=== PATIENT | male | born 1970 | race Caucasian/White ===

== ENCOUNTER 2016-10-27 12:28 | Emergency (ER) | payer MEDICAID, OTHER ==
[~2016-10-27] VITALS: Ht 167.6 cm; Wt 65.4 kg
[2016-10-27 12:48] VITALS: Ht 167.6 cm; Wt 65.4 kg
[2016-10-27] MEDS ORDERED: IBUPROFEN 600 MG TAB PO ONE (15:30)
--- NOTE | 2016-10-27 15:53 | RADRPT ---
PROCEDURE: US Lower extremity Venous. CLINICAL INDICATION: Pain and swelling TECHNIQUE: Multiple sonographic images of the right lower extremity deep venous system was obtaine d utilizing grayscale, color-flow, compressive sonography and doppler imaging with augmentation. Th e images were reviewed on a PACS workstation. COMPARISON: None. FINDINGS: There is normal compressibility and flow within the right common femoral, deep femoral, superficial femoral and popliteal veins. Normal respiratory variation and augmentation is seen. There is normal color flow and compressibility of right posterior tibial and peroneal veins IMPRESSION: No sonographic evidence for right lower extremity deep venous thrombosis. RPTAT: HH .Desmond Mitchell MD, MD Date Time Electronically viewed and signed by .Desmond Mitchell MD, on 10/27/2016 15:52 .W/
[2016-10-27 16:26] LABS: ADD SCAN DIFF NO
[2016-10-27 16:29] LABS: BASOPHIL # 0.1 10^3/ul (0.0-0.1); BASOPHILS % 1.6 % (0.0-2.0); EOSINOPHILS # 0.2 10^3/ul (0.0-0.5); EOSINOPHILS % 3.6 % (0.0-7.0); HEMATOCRIT 36.4 % (42.0-52.0); HEMOGLOBIN 12.6 g/dl (14.0-18.0); LYMPHOCYTES # 1.8 10^3/ul (0.8-2.9); MEAN CORPUSCULAR HEMOGLOBIN 31.4 pg (29.0-33.0); MEAN CORPUSCULAR HGB CONC 34.6 g/dl (32.0-37.0); MEAN CORPUSCULAR VOLUME 90.8 fl (82.0-101.0); MEAN PLATELET VOLUME 10.3 fl (7.4-10.4); MONOCYTE # 0.5 10^3/ul (0.3-0.9); MONOCYTES % 10.4 % (0.0-11.0); NEUTROPHIL # 2.4 10^3/ul (1.6-7.5); NEUTROPHILS % 48.2 % (39.0-77.0); PLATELET COUNT 130 10^3/UL (140-415); RED BLOOD COUNT 4.01 10^6/ul (4.70-6.10); RED CELL DISTRIBUTION WIDTH 13.7 % (11.5-14.5)
[2016-10-27 16:44] LABS: ALBUMIN 3.6 g/dl (3.3-4.9)
[2016-10-27 16:45] LABS: POTASSIUM 3.9 mmol/L (3.5-5.1)
[2016-10-27 16:47] LABS: ALBUMIN/GLOBULIN RATIO 1.02; CREATININE 0.64 mg/dl (0.61-1.24); TOTAL PROTEIN 7.1 g/dl (6.1-8.1)
[2016-10-27 16:48] LABS: CALCIUM 8.7 mg/dl (8.4-10.2)
[2016-10-27] MEDS ORDERED: ACET500C5 PO (17:46)
--- NOTE | 2016-10-27 17:49 | ERD ---
ER Documentation Chief Complaint Date/Time DATE: 10/27/16 TIME: 17:47 Chief Complaint Pt generalized weakness, L leg pain X 4 days. HPI This 38-year-old male complains of pain in his right leg for last 4 days. Denies any history of trauma. Denies any fevers, shortness of breath. He has some complaints of some generalized body aches as well. Denies measured fever, cough, shortness of breath, abdominal pain, urinary complaints per ROS All systems reviewed and are negative except as per history of present illness. Medications Home Meds Active Scripts Acetaminophen* (Tylophen*) 500 Mg Capsule, 1 CAP PO Q6H Y for PAIN AND OR ELEVATED TEMP, #20 CAP Prov:PAUL ORDOÑEZ MD 10/27/16 Allergies Allergies: Uncoded Allergies: NONE (Allergy, 06/14/11) PMhx/Soc Medical and Surgical Hx: pt denies Medical Hx, pt denies Surgical Hx Hx Alcohol Use: No Hx Substance Use: No Smoking Status: Never smoker Physical Exam Vitals Vital Signs Date Time Temp Pulse Resp B/P Pulse Ox O2 Delivery O2 Flow Rate FiO2 10/27/16 12:48 98.6 62 20 139/63 100 Physical Exam Const: [] Alert, [id number] per Head: Atraumatic Eyes: Normal Conjunctiva ENT: Normal External Ears, Nose and Mouth. Neck: Full range of motion..~ No meningismus. Resp: Clear to auscultation bilaterally Cardio: Regular rate and rhythm, no murmurs Abd: Soft, non tender, non distended. Normal bowel sounds Skin: No petechiae or rashes Back: No midline or flank tenderness Ext: No cyanosis, or edema. Mild tenderness in the right calf without appreciable swelling. There is no erythema or warmth. Neur: Awake and alert Psych: Normal Mood and Affect Result Diagram: 10/27/16 1613 10/27/16 1613 Results 24 hrs Laboratory Tests Test 10/27/16 16:13 Alanine Aminotransferase (ALT/SGPT) 43IU/L Albumin 3.6g/dl Albumin/Globulin Ratio 1.02 Alkaline Phosphatase 147IU/L Anion Gap 14 Aspartate Amino Transf (AST/SGOT) 58IU/L Basophils # 0.110^3/ul Basophils % 1.6% Blood Urea Nitrogen 14mg/dl Calcium Level 8.7mg/dl Carbon Dioxide Level 25mmol/L Chloride Level 107mmol/L Creatinine 0.64mg/dl Direct Bilirubin 0.00mg/dl Eosinophils # 0.210^3/ul Eosinophils % 3.6% Globulin 3.50g/dl Glucose Level 127mg/dl Hematocrit 36.4% Hemoglobin 12.6g/dl Indirect Bilirubin 1.0mg/dl Lymphocytes # 1.810^3/ul Lymphocytes % 36.0% Mean Corpuscular Hemoglobin 31.4pg Mean Corpuscular Hemoglobin Concent 34.6g/dl Mean Corpuscular Volume 90.8fl Mean Platelet Volume 10.3fl Monocytes # 0.510^3/ul Monocytes % 10.4% Neutrophils # 2.410^3/ul Neutrophils % 48.2% Nucleated Red Blood Cells # 0.010^3/ul Nucleated Red Blood Cells % 0.0/100WBC Platelet Count 93734^3/UL Potassium Level 3.9mmol/L Red Blood Count 4.0110^6/ul Red Cell Distribution Width 13.7% Sodium Level 142mmol/L Total Bilirubin 1.0mg/dl Total Protein 7.1g/dl White Blood Count 5.010^3/ul Current Medications Medications (Trade) Dose Ordered Sig/Shiela Route PRN Reason Start Time Stop Time Status Last Admin Dose Admin Ibuprofen (Motrin) 600 mg ONCE ONCE PO 10/27/16 15:30 10/27/16 15:31 DC 10/27/16 15:52 Procedures/MDM CBC shows a white blood cell 5. Slight decrease in hemoglobin and decreased platelets. CMP and lipase are normal. Other extremity Doppler shows no evidence of DVT. Patient was given ibuprofen for pain. Patient has right leg pain of uncertain etiology and myalgias without evidence of DVT, cellulitis, neurovascular compromise, bacterial infection.. Patient shows no signs or symptoms to suggest acute emergent illness requiring further intervention. He does appear to be in need of primary care. He will be discharged home with follow-up with a local [facility]. Should otherwise return for fever, cough, shortness breath, new or worsening symptoms. The patient was stable with no new complaints during the ER course. Clinically, there is no current evidence to suggest meningitis, sepsis, acute abdomen, pneumonia, acute coronary syndrome, pulmonary embolism, or any other emergent condition appearing to require further evaluation or hospitalization. The patient should certainly return for any new or worsening symptoms per the aftercare instructions. They should otherwise follow-up with her primary care doctor for reevaluation this week. Departure Diagnosis: Primary Impression: Leg pain Laterality: right Qualified Code: M79.604 - Pain of right lower extremity Additional Impression: Multiple complaints Condition: Stable Patient Instructions: Muscle Strain, Extremity, Symptoms With Uncertain Cause [facility] Usted se green hecho un examen mdico de control que le indica que no est en geo condicin que requiera tratamiento urgente en el Departamento de Emergencia. Un estudio ms profundo y el tratamiento de jorge condicin pueden esperar sin ningn riesgo hasta que usted sea atendida/o en el consultorio de jorge mdico o geo cl belen. Es responsabilidad suya arreglar geo debbie para el seguimiento del bashir. MANEJO DE CONDICIONES NO URGENTES EN EL FUTURO 1) Si usted tiene un mdico de atencin primaria: Usted debera llamar a jorge mdico de atencin primaria antes de venir al departamento de emergencia. Despus de las horas de consultorio, jorge doctor o jorge asociado/a est disponible por telfono. El mdico o enfermero de jett en el servicio telefnico puede asesorarle por flip medio para atender el problema, o bashir contrario se puede programar geo debbie. 2) Si usted no tiene un mdico de atencin primaria: Llame al mdico o clnica de referencia que aparece abajo desmond las horas de consultorio para hacer geo debbie para que le vean. CLINICAS: [facility] [phone] [facility] [phone] [facility] [phone] [facility] [phone] [facility] [phone] [id number] [facility] [phone] [address] Additional Instructions: Examines normal hoy. Cheque otro vez con jorge doctor primario en el proximo walker or regresa para mas o nueva simptomas. PAUL ORDOÑEZ MD Oct 27, 2016 17:49
[2016-10-27 17:57] VITALS: BP 128/62; PULSE 68; RESP 18; TEMP 97.9
== END 2016-10-27 17:59 | disposition home or self-care (01) ==
LOC: FTE 12:28
DX: M79.604 Pain in right leg (principal); R53.1 Weakness; M79.1 Myalgia
CPT/HCPCS: 80053; 85025; 93971; Z7502; Z7610

== ENCOUNTER 2016-11-15 12:44 | Inpatient (IN) | payer MEDICAID ==
[~2016-11-15] VITALS: Ht 170.2 cm; Wt 64.6 kg
[~2016-11-15 12:44] MED LIST: ACET500C5 PO
[2016-11-15] MEDS ORDERED: FAMOTIDINE 20 MG INJ IV STA (12:49)
[2016-11-15] MEDS ORDERED: ONDANSETRON 4 MG INJ IV STA (12:49)
[2016-11-15] MEDS ORDERED: SOD CHLORIDE 0.9% 1,000 ML IV STA (12:49)
[2016-11-15] MEDS ORDERED: morphine 4 MG/ML VIAL IV STA (12:49)
--- NOTE | 2016-11-15 12:53 | ERD ---
ER Documentation Chief Complaint Date/Time DATE: 11/15/16 TIME: 12:50 Chief Complaint HPI This is a 46-year-old male with no past medical history that presents to the emergency department brought in by EMS complaining of abdominal pain. He states the pain is present in the left lower quadrant. The pain has been persistent for the past 48 hours. He denies any hemoptysis hematemesis or melanotic stools. He denies any alcohol use. He denies any recent travel or prolonged immobilization. He has had no frequency urgency or dysuria. He has had a decrease in appetite since the onset of his abdominal pain. He states he has had no recent remote blunt or penetrating chest or abdominal wall trauma. He denies any diarrhea or constipation. He does state he is felt nauseous but as stated above he has not experienced any emesis. He has no chest pain or pressure that radiates to the neck arm back or jaw. He has never had any similar abdominal pain in the past. He denies any weight loss or night sweats. He denies a productive or nonproductive cough. ROS All systems reviewed and are negative except as per history of present illness. Medications Home Meds Discontinued Scripts Acetaminophen* (Tylophen*) 500 Mg Capsule, 1 CAP PO Q6H Y for PAIN AND OR ELEVATED TEMP, #20 CAP Prov:PAUL ORDOÑEZ MD 10/27/16 Allergies Allergies: Uncoded Allergies: NONE (Allergy, Unknown, 11/15/16) PMhx/Soc Hx Alcohol Use: No Hx Substance Use: No Physical Exam Vitals Vital Signs Date Time Temp Pulse Resp B/P Pulse Ox O2 Delivery O2 Flow Rate FiO2 11/15/16 15:46 66 18 121/64 99 Room Air 11/15/16 13:23 67 20 127/67 99 Room Air 11/15/16 12:50 97.9 64 18 100/57 98 Physical Exam Constitutional:Well-developed. Well-nourished. HEENT:Normocephalic. Atraumatic.Pupils were equal round reactive to light. Very dry mucous membranes.No tonsillar exudates. Neck: No nuchal rigidity. No lymphadenopathy. No posterior cervical spine tenderness or step-offs. Respiratory: Not using accessory muscles of respiration.Lungs were clear to auscultation bilaterally. No rhonchi. No rales. No wheezing. Cardiovascular: Regular rate regular rhythm.No murmurs. No rubs were appreciated.S1, S2 normal. Distal pulses are palpable 2+ bilaterally. GI: Abdomen was soft. Tenderness in the left lower quadrant. Distended with no fluid thrill or tense ascites. No pulsatile abdominal masses or bruits. No rebound. No guarding. Bowel sounds were present and normal. Muscle skeletal: Full range of motion of both the upper and lower extremities bilaterally.Normal muscle tone.No assymetrical calf tenderness or swelling. Skin: No petechia, no purpura. No lesions on the palms or the soles of the feet. No maculopapular rash. NEURO: Patient was alert, awake, orientated x3.No facial droop. Gait observed and normal with no ataxia.Speech had regular rate and rhythm. No focal neurological deficits. Result Diagram: 11/15/16 1345 11/15/16 1300 Results 24 hrs Laboratory Tests Test 11/15/16 13:00 11/15/16 13:45 Activated Partial Thromboplast Time 31.4Sec Alanine Aminotransferase (ALT/SGPT) 63IU/L Albumin 2.5g/dl Albumin/Globulin Ratio 0.89 Alkaline Phosphatase 137IU/L Amylase Level 57U/L Anion Gap 10 Aspartate Amino Transf (AST/SGOT) 103IU/L Basophils # 0.110^3/ul 0.010^3/ul Basophils % 3.0% 1.0% Blood Urea Nitrogen 13mg/dl Calcium Level 7.1mg/dl Carbon Dioxide Level 35mmol/L Chloride Level 98mmol/L Creatinine 0.51mg/dl Direct Bilirubin 0.00mg/dl Eosinophils # 0.210^3/ul 0.110^3/ul Eosinophils % 6.0% 4.0% Ethyl Alcohol Level < 10.0mg/dl Globulin 2.80g/dl Glucose Level 108mg/dl Hematocrit 20.0% 19.5% Hemoglobin 6.7g/dl 6.6g/dl Hypochromasia 2+ INR International Normalized Ratio 1.08 Indirect Bilirubin 0.8mg/dl Lipase 53U/L Lymphocytes # 0.710^3/ul 0.710^3/ul Lymphocytes % 24.0% 24.0% Mean Corpuscular Hemoglobin 29.5pg 29.9pg Mean Corpuscular Hemoglobin Concent 33.5g/dl 33.8g/dl Mean Corpuscular Volume 88.1fl 88.2fl Mean Platelet Volume 9.7fl 9.6fl Monocytes # 0.010^3/ul 0.110^3/ul Monocytes % 1.0% 5.0% Neutrophils # 1.910^3/ul 1.710^3/ul Neutrophils % 65.0% 59.0% Platelet Count 52903^3/UL 76392^3/UL Polychromasia Potassium Level 2.7mmol/L Promyelocytes # 0.0 Promyelocytes % 1.0% Prothrombin Time 14.0Sec Prothrombin Time Ratio 1.1 Red Blood Count 2.2710^6/ul 2.2110^6/ul Red Cell Distribution Width 13.8% 13.8% Sodium Level 140mmol/L Total Bilirubin 0.8mg/dl Total Protein 5.3g/dl Troponin I < 0.012ng/ml White Blood Count 2.910^3/ul 2.810^3/ul Band Neutrophils % 7.0% Nucleated Red Blood Cells % 2.0/100WBC Current Medications Medications (Trade) Dose Ordered Sig/Shiela Route PRN Reason Start Time Stop Time Status Last Admin Dose Admin Sodium Chloride (NS) 1,000 ml @ 1,000 mls/hr Q1H STAT IV 11/15/16 12:49 11/15/16 13:48 DC 11/15/16 13:42 Morphine Sulfate (morphine) 4 mg ONCE STAT IV 11/15/16 12:49 11/15/16 12:51 DC 11/15/16 13:42 Ondansetron HCl (Zofran Inj) 4 mg ONCE STAT IV 11/15/16 12:49 11/15/16 12:51 DC 11/15/16 13:42 Famotidine (Pepcid Iv) 20 mg ONCE STAT IV 11/15/16 12:49 11/15/16 12:51 DC 11/15/16 13:42 IV Flush 10 ml 10 ml STK-MED ONCE .ROUTE 11/15/16 14:35 11/15/16 14:36 DC 11/15/16 14:57 Sodium Chloride (NS) 100 ml @ ud STK-MED ONCE .ROUTE 11/15/16 14:35 11/15/16 14:36 DC 11/15/16 14:57 Iodixanol 100 ml 100 ml STK-MED ONCE .ROUTE 11/15/16 14:35 11/15/16 14:36 DC 11/15/16 14:58 Potassium Chloride (KCl 10 MEQ/50 ML SW) 50 ml @ 50 mls/hr ONCE ONCE IVPB 11/15/16 15:00 11/15/16 15:59 DC 11/15/16 15:34 Potassium Chloride 40 meq 40 meq ONCE STAT PO 11/15/16 14:50 11/15/16 14:52 DC 11/15/16 15:08 Piperacillin Sod/ Tazobactam Sod (Zosyn 3.375gm/ 100 ml (Pmx)) 100 ml @ 200 mls/hr ONCE ONCE IVPB 11/15/16 17:00 11/15/16 17:29 Procedures/MDM This patient presented to the emergency department with abdominal pain and was seen and evaluated by myself. My differential diagnosis included but was not limited to abdominal aortic aneurysm, appendicitis, pancreatitis, perforated peptic ulcer, perforated viscus, Boerhaaves syndrome or visceral pain such as diverticulitis, DKA, esophagitis, hepatitis or bowel obstruction. The patient was placed on a manager paper, continuous pulse oximetry, and IV access was established by nursing staff. Patient received intravenous morphine and Zofran for analgesic control. I obtained a 12-lead EKG tracing to rule out atypical myocardial infarction. 12 Lead EKG tracing ordered and reviewed by myself showed: Normal sinus rhythm of 67 bpm and no arrhythmia. [place] interval normal. QRS duration normal. No ST segment elevation No ST segment depression. No changes consistent with acute ischemia. Lab had phoned me with a critical value indicating the patient's hemoglobin was 6.7. The patient denied any hemoptysis hematemesis or melanotic stools. There is no conjunctival pallor. The patient has a remote history of heavy ethanol abuse while in [facility], where the patient was born and raised, however indicates he has not consumed any alcohol in over 10 years. I reviewed previous lab work and the patient had been seen for right lower extremity pain on October 27, 2016 roughly 3 weeks prior to arrival. Lab work had been done at that time and the patient had no leukopenia and his hemoglobin was normal at 12.6. Therefore at this time I repeated the CBC to ensure this was not a lab error. Given the severity of the patient's symptoms I did feel is necessary to obtain a CT scan of the abdomen with IV contrast. This was reviewed by the radiologist as well as myself and indicated the followin. The liver is cirrhotic, with signs of portal hypertension including moderate ascites, and recanalization and dilatation of the paraumbilical vein, with formation of periumbilical venous varices and a portosystemic shunt emptying into the left external iliac vein. 2. Areas of small bowel and colonic wall thickening are identified, likely representing portal hypertensive colopathy and enteropathy, though enterocolitis is not excluded. 3. There are small to mild bilateral pleural effusions, larger on the right. 4. No bowel obstruction, abscess, mass or lymphadenopathy is identified. The repeat blood work did indicate that the patient was anemic. He denied any hemoptysis or hematemesis and no melanotic stools. The patient was typed and crossed and given 2 units of packed red blood cells in the emergency department. The patient was also hyperkalemic with potassium of 2.7. The patient was given IV potassium in the emergency department as well as 40 mg once a p.o. potassium The patient will be admitted in serious condition under the care of the hospitalist. The patient will go to the telemetry service with an anticipated stay of greater than 2 midnights. As administered prophylactic antibiotics as he could not rule out an infectious process within the colon as there is inflammation of the colon wall and suspected enterocolitis. Patient was given IV Zosyn. Blood cultures and urine cultures have been obtained prior to the antibiotics being given. Departure Diagnosis: Primary Impression: Anemia Anemia type: unspecified type Qualified Code: D64.9 - Anemia, unspecified type Additional Impressions: Leukopenia Leukopenia type: neutropenia Neutropenia type: unspecified Qualified Code: D70.9 - Neutropenia, unspecified type Enterocolitis Hypokalemia Condition: Serious MIRANDA MURILLO Nov 15, 2016 12:53
[2016-11-15 13:14] LABS: ADD SCAN DIFF NO
[2016-11-15 13:15] LABS: ABNORMAL IP MESSAGE 1; MEAN CORPUSCULAR HEMOGLOBIN 29.5 pg (29.0-33.0); MEAN CORPUSCULAR HGB CONC 33.5 g/dl (32.0-37.0); MEAN CORPUSCULAR VOLUME 88.1 fl (82.0-101.0); MEAN PLATELET VOLUME 9.7 fl (7.4-10.4); PLATELET COUNT 156 10^3/UL (140-415); RED BLOOD COUNT 2.27 10^6/ul (4.70-6.10); RED CELL DISTRIBUTION WIDTH 13.8 % (11.5-14.5); WHITE BLOOD COUNT 2.9 10^3/ul (4.8-10.8)
[2016-11-15 13:25] LABS: INR 1.08; PT RATIO 1.1
[2016-11-15 13:26] LABS: HEMOGLOBIN 6.7 g/dl (14.0-18.0); PARTIAL THROMBOPLASTIN TIME 31.4 Sec (25.0-35.0)
[2016-11-15 13:30] LABS: ALBUMIN 2.5 g/dl (3.3-4.9)
[2016-11-15 13:31] LABS: CHLORIDE 98 mmol/L (97-110); SODIUM 140 mmol/L (135-144)
[2016-11-15 13:33] LABS: ALBUMIN/GLOBULIN RATIO 0.89; AMYLASE 57 U/L (11-123); ANION GAP 10 (8-16); BILIRUBIN,INDIRECT 0.8 mg/dl (0-1.1); BILIRUBIN,TOTAL 0.8 mg/dl (0.2-1.3); CARBON DIOXIDE 35 mmol/L (21-31); CREATININE 0.51 mg/dl (0.61-1.24); TOTAL PROTEIN 5.3 g/dl (6.1-8.1)
[2016-11-15 13:34] LABS: ALANINE AMINOTRANSFERASE 63 IU/L (13-69); ALKALINE PHOSPHATASE 137 IU/L (42-121); ASPARTATE AMINO TRANSFERASE 103 IU/L (15-46); BLOOD UREA NITROGEN 13 mg/dl (7-20); CALCIUM 7.1 mg/dl (8.4-10.2); GLUCOSE 108 mg/dl (70-220)
[2016-11-15 13:54] LABS: ADD SCAN DIFF NO
[2016-11-15 14:02] LABS: POTASSIUM 2.7 mmol/L (3.5-5.1); TROPONIN-I < 0.012 ng/ml (0.00-0.12)
[2016-11-15 14:09] LABS: ABNORMAL IP MESSAGE 1; HEMATOCRIT 19.5 % (42.0-52.0); MEAN CORPUSCULAR HEMOGLOBIN 29.9 pg (29.0-33.0); MEAN CORPUSCULAR HGB CONC 33.8 g/dl (32.0-37.0); MEAN CORPUSCULAR VOLUME 88.2 fl (82.0-101.0); MEAN PLATELET VOLUME 9.6 fl (7.4-10.4); PLATELET COUNT 166 10^3/UL (140-415); RED BLOOD COUNT 2.21 10^6/ul (4.70-6.10); RED CELL DISTRIBUTION WIDTH 13.8 % (11.5-14.5); WHITE BLOOD COUNT 2.8 10^3/ul (4.8-10.8)
[2016-11-15 14:10] LABS: HEMOGLOBIN 6.6 g/dl (14.0-18.0)
--- NOTE | 2016-11-15 14:24 | RADRPT ---
PROCEDURE: Chest Radiograph. CLINICAL INDICATION: Chest pain. Abdominal pain. TECHNIQUE: Single frontal chest radiograph. COMPARISON: None available FINDINGS: The cardiomediastinal silhouette is within normal limits. Lung volumes are decreased there is mild basilar atelectasis. No infiltrate or effusion is seen. There is a healed right mid shaft clavicu lar fracture. The bones are otherwise intact.. IMPRESSION: 1. Low lung volumes with mild basilar atelectasis. RPTAT: KK .Marc Mast MD, MD Date Time Electronically viewed and signed by .Marc Mast MD, on 11/15/2016 14:24 .B/
[2016-11-15 14:34] LABS: BASOPHIL # 0.1 10^3/ul (0.0-0.1); EOSINOPHILS # 0.2 10^3/ul (0.0-0.5); LYMPHOCYTES # 0.7 10^3/ul (0.8-2.9); NEUTROPHIL # 1.9 10^3/ul (1.6-7.5)
[2016-11-15 14:35] LABS: HYPOCHROMASIA 2+
[2016-11-15] MEDS ORDERED: IODIXANOL LOCM 100 ML BTL ONE (14:35)
[2016-11-15] MEDS ORDERED: SOD CHLORIDE 0.9% 100 ML ONE (14:35)
[2016-11-15] MEDS ORDERED: POTASSIUM CHLORIDE (SR) 20 MEQ TAB PO STA (14:50)
[2016-11-15] MEDS ORDERED: POTASSIUM CHLORIDE 50 ML IVPB ONE (15:00)
--- NOTE | 2016-11-15 15:06 | RADRPT ---
PROCEDURE: CT Abdomen and Pelvis with contrast. CLINICAL INDICATION: Cirrhosis, abdominal pain TECHNIQUE: CT of the abdomen and pelvis was performed on a multi-detector scanner following the un complicated IV administration of 100 cc of Omnipaque 300. Coronal and sagittal images were reformat abel from the axial data set. One or more of the following dose reduction techniques were used: auto mated exposure control, adjustment of the mA and/or kV according to patient size, use of iterative reconstruction technique. CTDI = 15.55 mGy. DLP = 956.49 mGy-cm. COMPARISON: None. FINDINGS: CT abdomen: There are small to mild bilateral pleural effusions, larger on the right. The heart size is normal, without pericardial effusion. The liver is cirrhotic. No gross evidence of focal hepatic mass is identified. Portal and hepatic veins remain patent. There is recanalization and dilatation of the paraumbilical vein, with formation of periumbilical venous varices and a portosystemic shunt connect ing to the left external iliac vein. Gallbladder, biliary tree, pancreas, spleen, adrenal glands an d kidneys are unremarkable. No urolithiasis or obstructive uropathy is identified. The stomach is grossly unremarkable. There is no abdominal aortic aneurysm or dissection. Aortic vascular calcifications are present. T here is no retroperitoneal lymphadenopathy. The matthew hepatis region is clear. CT pelvis: There is moderate ascites. Areas of colonic and small bowel wall thickening are identified, possibl y indicating portal hypertensive colopathy and enteropathy, though enterocolitis is not excluded. N o bowel obstruction, free intraperitoneal air or abscess is identified. The appendix is well visual ized and normal. There is no diverticulosis or diverticulitis. Urinary bladder is grossly unremark able. No pelvic mass or lymphadenopathy is identified. The surrounding osseous structures are remarkable for mild degenerative spondylosis of the spine. T here is chronic mild compression deformity of the L1 vertebral body. No osteolytic or osteoblastic lesion is detected. IMPRESSION: 1. The liver is cirrhotic, with signs of portal hypertension including moderate ascites, and recana lization and dilatation of the paraumbilical vein, with formation of periumbilical venous varices an d a portosystemic shunt emptying into the left external iliac vein. 2. Areas of small bowel and colonic wall thickening are identified, likely representing portal hype rtensive colopathy and enteropathy, though enterocolitis is not excluded. 3. There are small to mild bilateral pleural effusions, larger on the right. 4. No bowel obstruction, abscess, mass or lymphadenopathy is identified. RPTAT: JJ .Luc Vargas MD, MD Date Time Electronically viewed and signed by .Luc Vargas MD, on 11/15/2016 15:06 .R/
[2016-11-15 15:23] LABS: EOSINOPHILS # 0.1 10^3/ul (0.0-0.5); LYMPHOCYTES # 0.7 10^3/ul (0.8-2.9); MONOCYTE # 0.1 10^3/ul (0.3-0.9); NEUTROPHIL # 1.7 10^3/ul (1.6-7.5)
[2016-11-15] MEDS ORDERED: PIPER-TAZO 3.375 GM IV (PMX) 100 ML IVPB ONE (17:00)
[2016-11-15] MEDS ORDERED: ACETAMINOPHEN 325 MG TAB PO PRN (17:30)
[2016-11-15] MEDS ORDERED: ONDANSETRON 4 MG INJ IV PRN ×2 (17:30→18:30)
[2016-11-15] MEDS ORDERED: ACETAMINOPHEN 325 MG SUPP PR PRN (18:30)
[2016-11-15 18:49] VITALS: TEMP 98
[2016-11-15 19:24] LABS: HAAIG REFLEX REFLEX FILED
--- NOTE | 2016-11-15 20:06 | HP ---
DATE OF ADMISSION: 11/15/2016 REASON FOR ADMISSION: Anemia. HISTORY OF PRESENT ILLNESS: This is a 46-year-old gentleman with a remote significant alcohol histo ry, states he quit drinking approximately 10 years ago, previously has a history of severe GI bleed requiring transfusion in the past, apparently when he was in [facility], comes in with 48-hour histor y of increasing abdominal pain in the left lower quadrant. Pain was persistent with no radiation. No hemoptysis, hematemesis. No dark stools. No recent travel history. No dysuria, no urgency or f requency. No history of recent trauma. The patient unclear whether he has a history chronic liver disease. Denies any history of hepatitis B or C. PAST MEDICAL HISTORY: Significant alcohol abuse. SOCIAL HISTORY: He is a nonsmoker. Currently no alcohol. No history of drug use. FAMILY HISTORY: Noncontributory. SYSTEMS REVIEW: A 12-point review of systems negative other than that mentioned above. PHYSICAL EXAMINATION: GENERAL: Well-nourished, well-developed gentleman, comfortable at rest, talking in full and complet e sentences. VITAL SIGNS: Currently afebrile. Pulse is 73, blood pressure 119/77, O2 saturation 99% on room air . NECK: Supple. No JVD or lymphadenopathy. CARDIAC: S1, S2. No added sounds or murmurs. HEENT: Pupils are somewhat jaundiced. CHEST: Clear to auscultation bilaterally. ABDOMEN: Mildly distended but no guarding or rebound. EXTREMITIES: No cyanosis, clubbing. 1+ edema. NEUROLOGIC: Grossly intact. No focal deficits. SKIN: Dry and intact. LABORATORY DATA: Hemoglobin on admission 6.7, white count 2.9, platelets of 156. INR was 1.08. So dium 140, potassium 2.7, BUN 13, creatinine 0.51. Alcohol level was undetectable. DIAGNOSTIC DATA: CT abdomen and pelvis was reviewed, showed cirrhotic liver with evidence of portal hypertension; moderate ascites; areas of small-bowel and colonic wall thickening, possible enteroco litis not excluded; mild bilateral pleural effusions, right greater than left. Chest x-ray was reviewed, shows low lung volumes and bibasilar atelectasis. IMPRESSION AND PLAN: 1. Anemia, likely secondary to slow gastrointestinal bleed. 2. History of cirrhosis, portal hypertension, likely secondary to underlying history of prior alcoh ol abuse. Will require checking of hepatitis serology. 3. Evidence of enterocolitis. Will require IV antibiotics. PLAN: 1. Continue antibiotics. 2. Transfusion 2 units packed red blood cells. 3. GI consultation for colonoscopy, endoscopy. 4. DVT and GI prophylaxis. Dictated By: COLT HERRON/CHIDI Conf#: [id number] DID#: [id number]
[2016-11-15 20:22] LABS: HEPATITIS B CORE ANTIBODY NEGATIVE (NEGATIVE)
[2016-11-15 20:31] VITALS: BP 135/65; RESP 19
[2016-11-15 21:00] VITALS: Ht 170.2 cm; Wt 64.6 kg
[2016-11-15 21:27] VITALS: PULSE 72
[2016-11-16] VITALS (14 sets, daily range): BP systolic 114–138; BP diastolic 62–76; PULSE 62–72; RESP 16–19
[2016-11-16] MEDS: D5W-0.45 NACL + KCL 20 MEQ 1,000 ML IV SCH ×3 (00:58→21:10)
[2016-11-16 02:09] LABS: ADD UMIC NO; URINE BILIRUBIN (Dip) NEGATIVE (NEGATIVE); URINE BLOOD (Dip) NEGATIVE (NEGATIVE); URINE COLOR YELLOW (YELLOW); URINE GLUCOSE (Dip) NEGATIVE (NEGATIVE); URINE KETONES (Dip) NEGATIVE (NEGATIVE); URINE LEUKOCYTE ESTERASE (Dip) NEGATIVE (NEGATIVE); URINE NITRITE (Dip) NEGATIVE (NEGATIVE); URINE TOTAL PROTEIN (Dip) NEGATIVE (NEGATIVE); URINE UROBILINOGEN (Dip) >8.0 E.U./dL (0.1-1.0)
[2016-11-16] MEDS: PIPER-TAZO 3.375 GM IV (PMX) 100 ML IVPB SCH ×3 (05:37→21:36)
[2016-11-16] MEDS: PANTOPRAZOLE 40 MG INJ IV SCH (05:38)
[2016-11-16 06:27] LABS: ADD SCAN DIFF NO
[2016-11-16 06:42] LABS: BASOPHILS % 0.9 % (0.0-2.0); EOSINOPHILS # 0.1 10^3/ul (0.0-0.5); EOSINOPHILS % 1.5 % (0.0-7.0); HEMATOCRIT 24.1 % (42.0-52.0); HEMOGLOBIN 8.1 g/dl (14.0-18.0); LYMPHOCYTES # 0.8 10^3/ul (0.8-2.9); LYMPHOCYTES % 24.7 % (15.0-51.0); MEAN CORPUSCULAR HEMOGLOBIN 29.8 pg (29.0-33.0); MEAN CORPUSCULAR HGB CONC 33.6 g/dl (32.0-37.0); MEAN CORPUSCULAR VOLUME 88.6 fl (82.0-101.0); MEAN PLATELET VOLUME 9.9 fl (7.4-10.4); MONOCYTE # 0.6 10^3/ul (0.3-0.9); MONOCYTES % 16.8 % (0.0-11.0); NEUTROPHIL # 1.9 10^3/ul (1.6-7.5); NEUTROPHILS % 55.8 % (39.0-77.0); PLATELET COUNT 133 10^3/UL (140-415); RED BLOOD COUNT 2.72 10^6/ul (4.70-6.10); RED CELL DISTRIBUTION WIDTH 14.4 % (11.5-14.5); WHITE BLOOD COUNT 3.4 10^3/ul (4.8-10.8)
[2016-11-16 06:59] LABS: POTASSIUM 3.5 mmol/L (3.5-5.1)
[2016-11-16 07:01] LABS: CREATININE 0.61 mg/dl (0.61-1.24)
[2016-11-16 07:02] LABS: CALCIUM 6.5 mg/dl (8.4-10.2); MAGNESIUM 1.5 mg/dl (1.7-2.5); PHOSPHORUS 2.1 mg/dl (2.5-4.9)
--- NOTE | 2016-11-16 11:58 | PN ---
DATE: 11/16/2016 INTERNAL MEDICINE FOLLOWUP SUBJECTIVE: Chart reviewed. Events noted. No active bleeding noted at this time. The patient was given 2 units of packed RBC yesterday. GI evaluation is pending at this time. Currently the patien t is on room air, saturating 95%, and does not appear in acute distress. PHYSICAL EXAMINATION: VITAL SIGNS: Blood pressure 115/63, pulse 64, respirations 18, temperature 99.1. HEENT: Pupils are equal and reactive to light. Anicteric sclerae. NECK: Supple. No JVD noted. No cervical adenopathy. No carotid bruits heard. LUNGS: Clear to auscultation and percussion. CARDIOVASCULAR: S1, S2 normal. Soft systolic murmur at the left sternal border heard. ABDOMEN: Soft, slightly distended. No organomegaly or masses noted. EXTREMITIES: No clubbing, cyanosis, or edema. NEUROLOGIC: No focal deficits. LABORATORY: Sodium 139, potassium 3.5, chloride 103, CO2 30, BUN 11, creatinine 0.61, glucose 95. WBC 3.4, hemoglobin 8.1, hematocrit 24.1, platelets 133. IMPRESSION: 1. Severe anemia, likely due to slow gastrointestinal bleed. 2. Cirrhosis of liver, with evidence of portal hypertension. 3. History of alcohol abuse. 4. Possible enterocolitis. 5. Pancytopenia due to cirrhosis of the liver. RECOMMENDATIONS: 1. Continue the current antibiotics. 2. Await GI evaluation. 3. Monitor H and H and transfuse packed RBC as needed. 4. Gastrointestinal and deep venous thrombosis prophylaxis. 5. Discussed with nursing staff in detail. Dictated By: VIVIENNE HIGHTOWER MD, MA/CHIDI Conf#: [id number] DID#: [id number]
--- NOTE | 2016-11-16 13:31 | RADRPT ---
PROCEDURE: XR Chest. CLINICAL INDICATION: Shortness of breath. TECHNIQUE: Single frontal view. COMPARISON: 11/15/2016. FINDINGS: There is mild atelectasis at the right lung base. The lungs are otherwise clear. The heart size is normal. There is a small right pleural effusion. There is no left pleural effusion. There is no pneumothorax. IMPRESSION: 1. Mild bibasilar atelectasis and small right pleural effusion. 2. Otherwise normal chest x-ray. RPTAT: QQ .Jarett Tsang MD, MD Date Time Electronically viewed and signed by .Jarett Tsang MD, on 11/16/2016 13:31 .R/
--- NOTE | 2016-11-16 13:48 | CONS ---
Date/Time of Note Date/Time of Note DATE: 11/16/16 TIME: 13:35 Assessment/Plan Assessment/Plan Additional Assessment/Plan Assessment: * Significant anemia * GI bleeding likely * Rule out others * Probable alcoholic cirrhosis * Ascites * Recanalized umbilical vein * Rule out esophageal varices * Abdominal distention with doughy abdominal appearance * Rule out intra-abdominal malignant process * Abnormal small bowel and colonic wall and CT * Rule out inflammatory versus neoplastic * History of alcohol abuse/claims abstinence 10 years Plan: * Monitor H&H transfuse hemoglobin above 7.5 * PPI therapy * Obtain CEA, CA-19-9, alpha-fetoprotein * Diagnostic paracentesis, fluid for cell count, albumin, protein, glucose, LDH , Gram stain, cytology * Prepared for EGD and colonoscopy on Friday afternoon. Patient informed of risks, benefits and alternatives. Agreeable to proceed. * Further recommendations depend on findings Consultation Date/Type/Reason Admit Date/Time Nov 15, 2016 at 17:03 Date of Consultation: Nov 16, 2016 Type of Consultation: Gastroenterology Reason for Consultation * Severe anemia Hx of Present Illness 46-year-old male brought to the emergency room with complaints of significant epigastric abdominal pain of relatively new onset. The patient describes the pain as severe graded as 7/10, it was intermittent and recurrent. There is no associated symptoms such as nausea, vomiting, pyrosis, regurgitation. There is no evidence of overt gastrointestinal bleeding. Hematemesis, melena or hematochezia. There is no fever chills diaphoresis. The patient states he has never had pain like this before. There were no triggers, no exacerbating or relieving factors that the patient could identify. Of note the patient is a relatively poor historian. The patient is known to have been a heavy alcohol abuser and at some point in time had an episode of massive gastrointestinal bleeding that required multiple transfusions, the patient however ignores what was the cause of his bleeding and when I mention cirrhosis or esophageal varices he does not recognize this possibilities. Upon evaluation in the emergency room the patient was found to have significant anemia with a hemoglobin in the 7 g range, again there is no evidence of overt gastrointestinal bleeding. Stool for occult blood is pending. The patient underwent CT of the abdomen with the following findings: 1. The liver is cirrhotic, with signs of portal hypertension including moderate ascites, and recanalization and dilatation of the paraumbilical vein, with formation of periumbilical venous varices and a portosystemic shunt emptying into the left external iliac vein. 2. Areas of small bowel and colonic wall thickening are identified, likely representing portal hypertensive colopathy and enteropathy, though enterocolitis is not excluded. 3. There are small to mild bilateral pleural effusions, larger on the right. 4. No bowel obstruction, abscess, mass or lymphadenopathy is identified. Patient has been hospitalized for further management, he has received blood transfusions, he has been started on PPI therapy. At the present time the patient appears comfortable, complains of being very hungry, he had been kept n.p.o. and recently was started on clear liquid diet. He denies abdominal pain, he states he just had a normal bowel movement. The patient has been informed of the need for evaluation to assess the source of bleeding which will include endoscopy and colonoscopy. Patient was informed that we will prepare him for this procedures tomorrow Friday and proceed on Friday afternoon. Risks benefits and alternatives were discussed. The patient is agreeable to proceed. Constitutional: improved, no complaints Eyes: no complaints ENT: no complaints Respiratory: no complaints Cardiovascular: no complaints Gastrointestinal: other (Abdominal distention which appears to be chronic according to the patient), pain (Epigastric, now resolved), No blood, No constipation, No decreased appetite, No diarrhea, No nausea, No vomiting Genitourinary: no complaints Musculoskeletal: no complaints Skin: no complaints Neurologic: no complaints Endocrine: no complaints Lymphatic: no complaints Psychological: nl mood/affect, no complaints Immunologic: no complaints Past Medical History * History of alcohol abuse. Patient claims abstinence 10 years * History of gastrointestinal bleeding source unclear Medical History: other Past Surgical History Past Surgical Hx: no surgical history Family History Significant Family History: no pertinent family hx Social History Alcohol Use: sober Smoking Status: Never smoker Drug Use: none Exam/Review of Systems Vital Signs Vitals Vital Signs Date Time Temp Pulse Resp B/P Pulse Ox O2 Delivery O2 Flow Rate FiO2 11/16/16 12:36 62 11/16/16 11:14 99.1 18 115/63 95 11/15/16 18:49 Room Air Intake and Output 11/15/16 11/15/16 11/16/16 15:00 23:00 07:00 Intake Total 350 ml 1020 ml Output Total 850 ml Balance 350 ml 170 ml Exam Constitutional: alert, oriented, well developed Psych: anxiety, nl mood/affect, no complaints Head: atraumatic, normocephalic Eyes: EOMI, PERRL, nl conjunctiva, nl lids, nl sclera ENMT: nl external ears & nose, nl lips & teeth, nl nasal mucosa & septum Neck: non-tender, supple Respiratory: diminished breath sounds (Both bases), No crackles/rales, No labored breathing, No wheezing Cardiovascular: nl pulses, regular rate and rhythm Gastrointestinal: ascites, bowel sounds, distended (Doughy appearance), other ( Significant collateral vein pattern. Patient has portal hypertension with a patent umbilical vein), No mass, No rebound or guarding, No tender Musculoskeletal: nl extremities to inspection Extremities: normal pulses Skin: nl turgor, No rash or lesions Lymph: nl lymph nodes Results Result Diagram: 11/16/16 0533 11/16/16 0533 Results 24 hrs Laboratory Tests Test 11/15/16 13:45 11/16/16 01:50 11/16/16 05:33 Band Neutrophils % 7.0 H Basophils # 0.0 0.0 Basophils % 1.0 0.9 Eosinophils # 0.1 0.1 Eosinophils % 4.0 1.5 Hematocrit 19.5 L 24.1 #L Hemoglobin 6.6 *L 8.1 #L Hepatitis B Core Total Antibody NEGATIVE Hepatitis B Surface Antigen NEGATIVE Hepatitis C Antibody NEGATIVE Lymphocytes # 0.7 L 0.8 Lymphocytes % 24.0 24.7 Mean Corpuscular Hemoglobin 29.9 29.8 Mean Corpuscular Hemoglobin Concent 33.8 33.6 Mean Corpuscular Volume 88.2 88.6 Mean Platelet Volume 9.6 9.9 Monocytes # 0.1 L 0.6 Monocytes % 5.0 16.8 H Neutrophils # 1.7 1.9 Neutrophils % 59.0 55.8 Nucleated Red Blood Cells % 2.0 H 0.0 Platelet Count 166 133 L Red Blood Count 2.21 L 2.72 #L Red Cell Distribution Width 13.8 14.4 White Blood Count 2.8 L 3.4 #L Urine Bilirubin NEGATIVE Urine Clarity CLEAR Urine Color YELLOW Urine Glucose NEGATIVE Urine Hemoglobin NEGATIVE Urine Ketones NEGATIVE Urine Leukocyte Esterase NEGATIVE Urine Nitrite NEGATIVE Urine Specific [place] 1.010 Urine Total Protein NEGATIVE Urine Urobilinogen >8.0 E.U./dL H Urine pH 8.5 Anion Gap 10 Blood Urea Nitrogen 11 Calcium Level 6.5 L Carbon Dioxide Level 30 Chloride Level 103 Creatinine 0.61 Glucose Level 95 Magnesium Level 1.5 L Nucleated Red Blood Cells # 0.0 Phosphorus Level 2.1 L Potassium Level 3.5 Sodium Level 139 Medications Medications Current Medications Ondansetron HCl 4 mg 4 mg Q6H PRN IV NAUSEA AND/OR VOMITING; Start 11/15/16 at 18:30 Piperacillin Sod/ Tazobactam Sod (Zosyn 3.375gm/ 100 ml (Pmx)) 100 ml @ 200 mls /hr Q8 IVPB Last administered on 11/16/16 05:37; Admin Dose 200 MLS/HR; Start 11/16/16 at 06:00 Acetaminophen 325 mg 325 mg Q6H PRN [place] MILD PAIN LEVEL 1-3; Start 11/15/16 at 18:30 Potassium Chloride/Dextrose/ Sod Cl (D5-1/2ns + KCl 20 Meq) 1,000 ml @ 75 mls/ hr [id number] IV Last administered on 11/16/16 07:50; Admin Dose 75 MLS/HR; Start 11/15/16 at 18:30 Pantoprazole (Protonix Iv) 40 mg DAILY@06 IV Last administered on 11/16/16 05: 38; Admin Dose 40 MG; Start 11/16/16 at 06:00 Influenza Virus Vaccine (Fluzone) 0.5 ml ONCE ONCE IM* ; Start 11/18/16 at 09:00 ; Stop 11/18/16 at 09:01 VINCENT MANUEL MD Nov 16, 2016 13:48
[2016-11-16 15:10] LABS: CARCINOEMBRYONIC ANTIGEN 4.3 ng/ml (0.0-5.0)
[2016-11-16 15:14] LABS: CANCER ANTIGEN 19-9 6.8 U/ml (0.0-37.0)
--- NOTE | 2016-11-16 17:40 | RADRPT ---
PROCEDURE: Ultrasound guided paracentesis. CLINICAL INDICATION: Ascites and shortness of breath. COMPARISON: No prior studies are available for comparison. TECHNIQUE: The risks, benefits, and alternatives were explained to the patient and/or the patient's family, inc luding but not limited to bleeding, infection, pain, visceral or vascular damage, shock, and . The patient and/or the patient's family understood the risks and the alternatives and wished to pro ceed with the procedure. Informed written consent was obtained. A procedural time out was performed . The patient's name, date of , and procedure to be performed were verified. Utilizing ultrasound guidance, optimal location for entry to the peritoneal cavity was ascertained. The overlying skin was prepped and draped in the usual sterile fashion. Approximately 10 ml of 1% Xylocaine was injected locally for pain control. Using ultrasound guidance, an 8 Martiniquais catheter wa s introduced into the peritoneal cavity in the right lower quadrant without difficulty. FINDINGS: Initial images demonstrate ascites. Approximately 1.9 liters of serous fluid was aspirated and sent for laboratory analysis. The patient tolerated the procedure well without complication. IMPRESSION: 1. Successful ultrasound-guided paracentesis. RPTAT: QQ .Jarett Tsang MD, Date Time Electronically viewed and signed by .Jarett Tsang MD, on 11/16/2016 17:39 .R/
[2016-11-16] MEDS ORDERED: LIDOCAINE 1% (MPF) 5 ML VIAL ONE (17:41)
[2016-11-17] VITALS (11 sets, daily range): BP systolic 97–160; BP diastolic 53–75; PULSE 55–78; RESP 16–20
[2016-11-17] MEDS: PANTOPRAZOLE 40 MG INJ IV SCH (05:30)
[2016-11-17] MEDS: PIPER-TAZO 3.375 GM IV (PMX) 100 ML IVPB SCH ×3 (05:30→21:46)
[2016-11-17] MEDS: BISACODYL (EC) 5 MG TAB PO ONE ×2 (05:31→10:34)
[2016-11-17 05:55] LABS: ADD SCAN DIFF NO
[2016-11-17 06:04] LABS: HEMATOCRIT 26.2 % (42.0-52.0); HEMOGLOBIN 8.7 g/dl (14.0-18.0); MEAN CORPUSCULAR HEMOGLOBIN 29.7 pg (29.0-33.0); MEAN CORPUSCULAR HGB CONC 33.2 g/dl (32.0-37.0); MEAN CORPUSCULAR VOLUME 89.4 fl (82.0-101.0); MEAN PLATELET VOLUME 9.8 fl (7.4-10.4); PLATELET COUNT 127 10^3/UL (140-415); RED BLOOD COUNT 2.93 10^6/ul (4.70-6.10); RED CELL DISTRIBUTION WIDTH 14.5 % (11.5-14.5); WHITE BLOOD COUNT 3.2 10^3/ul (4.8-10.8)
[2016-11-17 08:11] LABS: LYMPHOCYTES # 1.2 10^3/ul (0.8-2.9); MONOCYTE # 0.5 10^3/ul (0.3-0.9); NEUTROPHIL # 1.5 10^3/ul (1.6-7.5)
[2016-11-17 08:12] LABS: PLATELET ESTIMATE PLT APPEAR ADEQUATE
[2016-11-17] MEDS ORDERED: MAGNESIUM CITRATE 300 ML BTL PO ONE (09:00)
--- NOTE | 2016-11-17 10:13 | PN ---
Date/Time of Note Date/Time of Note DATE: 11/17/16 TIME: 10:09 Assessment/Plan VTE Prophylaxis VTE Prophylaxis Intervention: SCD's Lines/Catheters IV C[facility]ter Type (from [facility]): Peripheral IV Assessment/Plan Chief Complaint/Hosp Course Problems: Assessment/Plan Assessment: * Significant anemia * GI bleeding likely * Rule out others * Probable alcoholic cirrhosis * Ascites * Recanalized umbilical vein * Rule out esophageal varices * Abdominal distention with doughy abdominal appearance * Rule out intra-abdominal malignant process * Post paracentesis. Laboratories on ascitic fluid pending * Abnormal small bowel and colonic wall and CT * Rule out inflammatory versus neoplastic * History of alcohol abuse/claims abstinence 10 years Plan: * Monitor H&H transfuse hemoglobin above 7.5 * PPI therapy * Review ascitic fluid labs * Prepared for EGD and colonoscopy on Friday. Patient informed of risks, benefits and alternatives. Agreeable to proceed. * Further recommendations depend on findings Subjective 24 Hr Interval Summary Free Text/Dictation Course reviewed with nursing staff Patient reports improvement post paracentesis Ascitic fluid laboratories pending We will initiate prep for colonoscopy No evidence of overt gastrointestinal bleeding Schedule EGD and colonoscopy tomorrow afternoon. Patient aware and agreeable Exam/Review of Systems Vital Signs Vitals Vital Signs Date Time Temp Pulse Resp B/P Pulse Ox O2 Delivery O2 Flow Rate FiO2 11/17/16 08:21 59 11/17/16 05:35 98.2 18 120/75 99 Room Air Intake and Output 11/16/16 11/16/16 11/17/16 15:00 23:00 07:00 Intake Total 1975 ml 750 ml Output Total 800 ml 775 ml Balance 1175 ml -25 ml Exam Constitutional: alert, oriented, well developed Psych: anxiety, nl mood/affect, no complaints Head: atraumatic, normocephalic Eyes: EOMI, PERRL, nl conjunctiva, nl lids, nl sclera ENMT: nl external ears & nose, nl lips & teeth, nl nasal mucosa & septum Neck: non-tender, supple Respiratory: diminished breath sounds (Both bases), No crackles/rales, No labored breathing, No wheezing Cardiovascular: nl pulses, regular rate and rhythm Gastrointestinal: ascites, bowel sounds, distended (Doughy appearance), other ( Significant collateral vein pattern. Patient has portal hypertension with a patent umbilical vein), No mass, No rebound or guarding, No tender Musculoskeletal: nl extremities to inspection Extremities: normal pulses Skin: nl turgor, No rash or lesions Lymph: nl lymph nodes Results Result Diagram: 11/17/16 0547 11/16/16 0533 Results 24 hrs Laboratory Tests Test 11/17/16 05:47 Eosinophils # 0.0 Eosinophils % 1.0 Hematocrit 26.2 L Hemoglobin 8.7 L Lymphocytes # 1.2 Lymphocytes % 36.0 Mean Corpuscular Hemoglobin 29.7 Mean Corpuscular Hemoglobin Concent 33.2 Mean Corpuscular Volume 89.4 Mean Platelet Volume 9.8 Monocytes # 0.5 Monocytes % 15.0 H Neutrophils # 1.5 L Neutrophils % 48.0 Platelet Count 127 L Platelet Estimate PLT APPEAR ADEQUATE Red Blood Count 2.93 L Red Cell Distribution Width 14.5 White Blood Count 3.2 L Medications Medications Current Medications Ondansetron HCl 4 mg 4 mg Q6H PRN IV NAUSEA AND/OR VOMITING; Start 11/15/16 at 18:30 Piperacillin Sod/ Tazobactam Sod (Zosyn 3.375gm/ 100 ml (Pmx)) 100 ml @ 200 mls /hr Q8 IVPB Last administered on 11/17/16 05:30; Admin Dose 200 MLS/HR; Start 11/16/16 at 06:00 Acetaminophen 325 mg 325 mg Q6H PRN [place] MILD PAIN LEVEL 1-3; Start 11/15/16 at 18:30 Potassium Chloride/Dextrose/ Sod Cl (D5-1/2ns + KCl 20 Meq) 1,000 ml @ 75 mls/ hr [id number] IV Last administered on 11/16/16 07:50; Admin Dose 75 MLS/HR; Start 11/15/16 at 18:30 Pantoprazole (Protonix Iv) 40 mg DAILY@06 IV Last administered on 11/17/16 05: 30; Admin Dose 40 MG; Start 11/16/16 at 06:00 Influenza Virus Vaccine (Fluzone) 0.5 ml ONCE ONCE IM* ; Start 11/18/16 at 09:00 ; Stop 11/18/16 at 09:01 Polyethylene Glycol (Miralax) 119 gm ONCE ONCE PO ; Start 11/17/16 at 10:30; Stop 11/17/16 at 10:31 VINCENT MANUEL MD Nov 17, 2016 10:12
[2016-11-17] MEDS ORDERED: POLYETHYLENE GLYCOL 3350 119 GM POWDER PO ONE (10:30)
[2016-11-17] MEDS: D5W-0.45 NACL + KCL 20 MEQ 1,000 ML IV SCH ×2 (10:36→23:50)
--- NOTE | 2016-11-17 17:11 | PN ---
DATE: 11/17/2016 SUBJECTIVE: Chart reviewed. GI consultation noted. Plans for EGD and colonoscopy tomorrow noted. PHYSICAL EXAMINATION: VITAL SIGNS: Blood pressure 126/70, pulse 56, respiration 20, temperature 97.6. Currently saturati ng 98% on room air. HEENT: Pupils are equal and reactive to light. NECK: Supple, no JVD noted, no cervical adenopathy, no carotid bruits heard. LUNGS: Fair breath sounds bilaterally. CARDIOVASCULAR: S1, S2 normal. ABDOMEN: Soft, nontender. No organomegaly or masses noted. EXTREMITIES: No clubbing or cyanosis noted. NEUROLOGICAL: Awake. LABORATORY DATA: WBC 3.2, hemoglobin 8.7, hematocrit 26.2, platelets 127. Sodium 139, potassium 3. 5, chloride 103, CO2 30, BUN 11, creatinine 0.61, glucose 95. IMAGING: Chest x-ray shows mild bibasilar atelectasis and a small right pleural effusion. Paracent esis was done yesterday and about 1.9 liters of serous fluid was aspirated. IMPRESSION: 1. Severe anemia, likely due to slow gastrointestinal bleed. 2. Cirrhosis of liver. 3. History of alcohol abuse. 4. Possible colitis. 5. Pancytopenia due to cirrhosis of liver. RECOMMENDATIONS: 1. Continue current antibiotics. 2. Gastrointestinal plans for EGD and colonoscopy noted. 3. Followup labs. Dictated By: VIVIENNE HIGHTOWER MD, MA/CHIDI Conf#: [id number] DID#: [id number]
[2016-11-18] VITALS (18 sets, daily range): BP systolic 83–154; BP diastolic 46–79; PULSE 54–76; RESP 15–64
[2016-11-18] MEDS ORDERED: POLYETHYLENE GLYCOL 3350 119 GM POWDER PO ONE (06:00)
[2016-11-18] MEDS: PANTOPRAZOLE 40 MG INJ IV SCH (06:08)
[2016-11-18] MEDS: PIPER-TAZO 3.375 GM IV (PMX) 100 ML IVPB SCH ×2 (06:08→13:42)
[2016-11-18] MEDS ORDERED: PROPOFOL 200 MG INJ ONE (07:00)
[2016-11-18 07:30] LABS: ADD SCAN DIFF NO
[2016-11-18 07:46] LABS: INR 1.26; PROTIME 15.9 Sec (12.2-14.2); PT RATIO 1.2
[2016-11-18 07:47] LABS: PARTIAL THROMBOPLASTIN TIME 34.1 Sec (25.0-35.0)
[2016-11-18 07:48] LABS: BASOPHILS % 0.6 % (0.0-2.0); EOSINOPHILS # 0.3 10^3/ul (0.0-0.5); EOSINOPHILS % 8.2 % (0.0-7.0); HEMATOCRIT 24.6 % (42.0-52.0); HEMOGLOBIN 8.2 g/dl (14.0-18.0); LYMPHOCYTES # 1.2 10^3/ul (0.8-2.9); LYMPHOCYTES % 35.3 % (15.0-51.0); MEAN CORPUSCULAR HEMOGLOBIN 29.8 pg (29.0-33.0); MEAN CORPUSCULAR HGB CONC 33.3 g/dl (32.0-37.0); MEAN CORPUSCULAR VOLUME 89.5 fl (82.0-101.0); MEAN PLATELET VOLUME 10.1 fl (7.4-10.4); MONOCYTE # 0.6 10^3/ul (0.3-0.9); MONOCYTES % 17.2 % (0.0-11.0); NEUTROPHIL # 1.3 10^3/ul (1.6-7.5); NEUTROPHILS % 38.4 % (39.0-77.0); PLATELET COUNT 122 10^3/UL (140-415); RED BLOOD COUNT 2.75 10^6/ul (4.70-6.10); RED CELL DISTRIBUTION WIDTH 14.5 % (11.5-14.5); WHITE BLOOD COUNT 3.3 10^3/ul (4.8-10.8)
[2016-11-18] MEDS ORDERED: INFLUENZA VIRUS VACCINE 0.5 ML (DISPENSING) IM* ONE (09:00)
[2016-11-18] MEDS: D5W-0.45 NACL + KCL 20 MEQ 1,000 ML IV SCH (09:23)
[2016-11-18] MEDS ORDERED: BISACODYL (EC) 5 MG TAB PO ONE (10:00)
--- NOTE | 2016-11-18 13:38 | PN ---
Date/Time of Note Date/Time of Note DATE: 11/18/16 TIME: 13:35 Assessment/Plan VTE Prophylaxis VTE Prophylaxis Intervention: SCD's Lines/Catheters [facility] Peripheral IV Urinary Cath still in place: No Assessment/Plan Chief Complaint/Hosp Course Problems: Assessment/Plan Assessment: * Significant anemia * GI bleeding likely * Rule out others * Probable alcoholic cirrhosis * Ascites * Recanalized umbilical vein * Rule out esophageal varices * Abdominal distention with doughy abdominal appearance * Rule out intra-abdominal malignant process * Post paracentesis. Laboratories on ascitic fluid pending * Abnormal small bowel and colonic wall and CT * Rule out inflammatory versus neoplastic * History of alcohol abuse/claims abstinence 10 years Plan: * Monitor H&H transfuse hemoglobin above 7.5 * PPI therapy * Review ascitic fluid labs * for EGD and colonoscopy today * Further recommendations depend on findings Subjective 24 Hr Interval Summary Free Text/Dictation Course reviewed with nursing staff Patient reports improvement post paracentesis No evidence of overt gastrointestinal bleeding Hemoglobin stable 8.2 Schedule EGD and colonoscopy today. Patient aware and agreeable Exam/Review of Systems Vital Signs Vitals Vital Signs Date Time Temp Pulse Resp B/P Pulse Ox O2 Delivery O2 Flow Rate FiO2 11/18/16 12:00 60 11/18/16 04:26 99.0 18 119/67 96 11/17/16 16:00 Room Air Intake and Output 11/17/16 11/17/16 11/18/16 15:00 23:00 07:00 Intake Total 1300 ml 850 ml Output Total 1900 ml 1350 ml Balance -600 ml -500 ml Exam Constitutional: alert, oriented, well developed Psych: anxiety, nl mood/affect, no complaints Head: atraumatic, normocephalic Eyes: EOMI, PERRL, nl conjunctiva, nl lids, nl sclera ENMT: nl external ears & nose, nl lips & teeth, nl nasal mucosa & septum Neck: non-tender, supple Respiratory: diminished breath sounds (Both bases), No crackles/rales, No labored breathing, No wheezing Cardiovascular: nl pulses, regular rate and rhythm Gastrointestinal: ascites, bowel sounds, distended (Doughy appearance), other ( Significant collateral vein pattern. Patient has portal hypertension with a patent umbilical vein), No mass, No rebound or guarding, No tender Musculoskeletal: nl extremities to inspection Extremities: normal pulses Skin: nl turgor, No rash or lesions Lymph: nl lymph nodes Results Result Diagram: 11/18/16 0645 11/16/16 0533 Results 24 hrs Laboratory Tests Test 11/18/16 06:45 Activated Partial Thromboplast Time 34.1 Basophils # 0.0 Basophils % 0.6 Eosinophils # 0.3 Eosinophils % 8.2 H Hematocrit 24.6 L Hemoglobin 8.2 L INR International Normalized Ratio 1.26 Lymphocytes # 1.2 Lymphocytes % 35.3 Mean Corpuscular Hemoglobin 29.8 Mean Corpuscular Hemoglobin Concent 33.3 Mean Corpuscular Volume 89.5 Mean Platelet Volume 10.1 Monocytes # 0.6 Monocytes % 17.2 H Neutrophils # 1.3 L Neutrophils % 38.4 L Nucleated Red Blood Cells # 0.0 Nucleated Red Blood Cells % 0.0 Platelet Count 122 L Prothrombin Time 15.9 H Prothrombin Time Ratio 1.2 Red Blood Count 2.75 L Red Cell Distribution Width 14.5 White Blood Count 3.3 L Medications Medications Current Medications Ondansetron HCl 4 mg 4 mg Q6H PRN IV NAUSEA AND/OR VOMITING; Start 11/15/16 at 18:30 Piperacillin Sod/ Tazobactam Sod (Zosyn 3.375gm/ 100 ml (Pmx)) 100 ml @ 200 mls /hr Q8 IVPB Last administered on 11/18/16 06:08; Admin Dose 200 MLS/HR; Start 11/16/16 at 06:00 Acetaminophen 325 mg 325 mg Q6H PRN [place] MILD PAIN LEVEL 1-3; Start 11/15/16 at 18:30 Potassium Chloride/Dextrose/ Sod Cl (D5-1/2ns + KCl 20 Meq) 1,000 ml @ 75 mls/ hr [id number] IV Last administered on 11/18/16 09:23; Admin Dose 75 MLS/HR; Start 11/15/16 at 18:30 Pantoprazole (Protonix Iv) 40 mg DAILY@06 IV Last administered on 11/18/16 06: 08; Admin Dose 40 MG; Start 11/16/16 at 06:00 VINCENT MANUEL MD Nov 18, 2016 13:38
[2016-11-18] MEDS ORDERED: PROPOFOL 20 ML ONE (18:14)
--- NOTE | 2016-11-18 18:59 | PN ---
Date/Time of Note Date/Time of Note DATE: 11/18/16 TIME: 18:56 Assessment/Plan VTE Prophylaxis VTE Prophylaxis Intervention: contraindicated (bleeding risk) Lines/Catheters IV Catheter Type (from [facility]): Peripheral IV Urinary Cath still in place: No Assessment/Plan Chief Complaint/Hosp Course A/P 1) GI Bleed? stable/ppi, f/u on endoscopy results 2) Symptomatic Anemia 3) Cirrhosis/pul htn? BB? 4) Past etoh 5) Leukopenia Problems: Subjective 24 Hr Interval Summary Free Text/Dictation S- in GI lab Exam/Review of Systems Vital Signs Vitals Vital Signs Date Time Temp Pulse Resp B/P Pulse Ox O2 Delivery O2 Flow Rate FiO2 11/18/16 18:07 98.6 68 18 137/73 99 Room Air Intake and Output 11/17/16 11/17/16 11/18/16 15:00 23:00 07:00 Intake Total 1300 ml 850 ml Output Total 1900 ml 1350 ml Balance -600 ml -500 ml Exam deferred; patient in GI lab Results Result Diagram: 11/18/16 0645 11/16/16 0533 Results 24 hrs Laboratory Tests Test 11/18/16 06:45 Activated Partial Thromboplast Time 34.1 Basophils # 0.0 Basophils % 0.6 Eosinophils # 0.3 Eosinophils % 8.2 H Hematocrit 24.6 L Hemoglobin 8.2 L INR International Normalized Ratio 1.26 Lymphocytes # 1.2 Lymphocytes % 35.3 Mean Corpuscular Hemoglobin 29.8 Mean Corpuscular Hemoglobin Concent 33.3 Mean Corpuscular Volume 89.5 Mean Platelet Volume 10.1 Monocytes # 0.6 Monocytes % 17.2 H Neutrophils # 1.3 L Neutrophils % 38.4 L Nucleated Red Blood Cells # 0.0 Nucleated Red Blood Cells % 0.0 Platelet Count 122 L Prothrombin Time 15.9 H Prothrombin Time Ratio 1.2 Red Blood Count 2.75 L Red Cell Distribution Width 14.5 White Blood Count 3.3 L Medications Medications Current Medications Ondansetron HCl 4 mg 4 mg Q6H PRN IV NAUSEA AND/OR VOMITING; Start 11/15/16 at 18:30 Piperacillin Sod/ Tazobactam Sod (Zosyn 3.375gm/ 100 ml (Pmx)) 100 ml @ 200 mls /hr Q8 IVPB Last administered on 11/18/16 13:42; Admin Dose 200 MLS/HR; Start 11/16/16 at 06:00 Acetaminophen 325 mg 325 mg Q6H PRN [place] MILD PAIN LEVEL 1-3; Start 11/15/16 at 18:30 Potassium Chloride/Dextrose/ Sod Cl (D5-1/2ns + KCl 20 Meq) 1,000 ml @ 75 mls/ hr [id number] IV Last administered on 11/18/16 09:23; Admin Dose 75 MLS/HR; Start 11/15/16 at 18:30 Pantoprazole (Protonix Iv) 40 mg DAILY@06 IV Last administered on 11/18/16 06: 08; Admin Dose 40 MG; Start 11/16/16 at 06:00 VIC MURCIA MD Nov 18, 2016 18:59
[2016-11-18] MEDS: SUCRALFATE 1 GM TAB PO SCH (20:23)
[2016-11-18] MEDS ORDERED: MAGNESIUM SULFATE 3 GM in SOD CHLORIDE 0.9% 100 ML IVPB ONE (21:00)
[2016-11-19] VITALS (10 sets, daily range): BP systolic 112–140; BP diastolic 62–77; PULSE 71–90; RESP 16–18
[2016-11-19] MEDS ORDERED: POTASSIUM PHOSPHATE 15 MM in SOD CHLORIDE 0.9% 250 ML IVPB ONE ×2
[2016-11-19] MEDS: PIPER-TAZO 3.375 GM IV (PMX) 100 ML IVPB SCH ×3 (00:03→13:59)
[2016-11-19] MEDS: PANTOPRAZOLE (EC) 40 MG TAB PO SCH ×2 (06:12→17:12)
[2016-11-19] MEDS: D5W-0.45 NACL + KCL 20 MEQ 1,000 ML IV SCH ×2 (06:14→17:15)
[2016-11-19 06:38] LABS: ADD SCAN DIFF NO
[2016-11-19 06:56] LABS: BASOPHILS % 0.6 % (0.0-2.0); EOSINOPHILS # 0.3 10^3/ul (0.0-0.5); EOSINOPHILS % 7.4 % (0.0-7.0); HEMATOCRIT 25.5 % (42.0-52.0); HEMOGLOBIN 8.3 g/dl (14.0-18.0); LYMPHOCYTES # 1.1 10^3/ul (0.8-2.9); LYMPHOCYTES % 31.6 % (15.0-51.0); MEAN CORPUSCULAR HEMOGLOBIN 29.4 pg (29.0-33.0); MEAN CORPUSCULAR HGB CONC 32.5 g/dl (32.0-37.0); MEAN CORPUSCULAR VOLUME 90.4 fl (82.0-101.0); MEAN PLATELET VOLUME 10.1 fl (7.4-10.4); MONOCYTE # 0.5 10^3/ul (0.3-0.9); MONOCYTES % 14.7 % (0.0-11.0); NEUTROPHIL # 1.6 10^3/ul (1.6-7.5); NEUTROPHILS % 45.7 % (39.0-77.0); PLATELET COUNT 122 10^3/UL (140-415); RED BLOOD COUNT 2.82 10^6/ul (4.70-6.10); RED CELL DISTRIBUTION WIDTH 14.5 % (11.5-14.5); WHITE BLOOD COUNT 3.4 10^3/ul (4.8-10.8)
[2016-11-19 07:08] LABS: ALBUMIN 2.3 g/dl (3.3-4.9)
[2016-11-19 07:09] LABS: POTASSIUM 3.8 mmol/L (3.5-5.1)
[2016-11-19 07:11] LABS: ALBUMIN/GLOBULIN RATIO 0.76; BILIRUBIN,INDIRECT 0.4 mg/dl (0-1.1); BILIRUBIN,TOTAL 0.4 mg/dl (0.2-1.3); CREATININE 0.65 mg/dl (0.61-1.24); TOTAL PROTEIN 5.3 g/dl (6.1-8.1)
[2016-11-19 07:12] LABS: CALCIUM 6.9 mg/dl (8.4-10.2); MAGNESIUM 1.8 mg/dl (1.7-2.5); PHOSPHORUS 2.8 mg/dl (2.5-4.9)
[2016-11-19 07:40] LABS: THYROID STIMULATING HORMONE 4.14 MIU/L (0.465-4.680)
[2016-11-19] MEDS: SUCRALFATE 1 GM TAB PO SCH ×2 (09:46→12:45)
--- NOTE | 2016-11-19 11:23 | PN ---
Date/Time of Note Date/Time of Note DATE: 11/19/16 TIME: 11:19 Assessment/Plan VTE Prophylaxis VTE Prophylaxis Intervention: SCD's Lines/Catheters IV Catheter Type (from [facility]): Peripheral IV Urinary Cath still in place: No Assessment/Plan Chief Complaint/Hosp Course Problems: Assessment/Plan Assessment: * Significant anemia * EGD: Esophageal ulcer, Samll Grade I/IV esophageal varices, Gastric ulcers and large Duodenal ulcer. No stigmata * Colonoscopy: Normal mucosa to cecum. Large internal hemorrhoids * Probable alcoholic cirrhosis * Ascites/Post paracentesis/ Ascitic fluid not sent as requested * Recanalized umbilical vein * Small Grade I/IV esophageal varices * Abdominal distention with doughy abdominal appearance * Post paracentesis. Laboratories on ascitic fluid not sent * Abnormal small bowel and colonic wall and CT * Negative colonoscopy * History of alcohol abuse/claims abstinence 10 years Plan: * Monitor H&H transfuse hemoglobin above 7.5 * PPI therapy * awaiting biopsy results * Appears safe for OP f/u * EGD in 8 weeks to assess healing * Further recommendations depend on findings Subjective 24 Hr Interval Summary Free Text/Dictation Course reviewed with nursing staff Patient reports improvement post paracentesis S?P EGD/Colonoscopy biopsy ,no abdominal pain No evidence of overt gastrointestinal bleeding Exam/Review of Systems Vital Signs Vitals Vital Signs Date Time Temp Pulse Resp B/P Pulse Ox O2 Delivery O2 Flow Rate FiO2 11/19/16 10:57 98.3 70 18 112/67 98 11/18/16 19:31 Room Air Intake and Output 11/18/16 11/18/16 11/19/16 15:00 23:00 07:00 Intake Total 1575 ml 850 ml Output Total 800 ml Balance 1575 ml 50 ml Exam Constitutional: alert, oriented, well developed Psych: nl mood/affect, no complaints Head: atraumatic, normocephalic Neck: non-tender, supple Respiratory: diminished breath sounds (Both bases), No crackles/rales, No labored breathing, No wheezing Cardiovascular: nl pulses, regular rate and rhythm Gastrointestinal: ascites, bowel sounds, distended (Doughy appearance), other ( Significant collateral vein pattern. Patient has portal hypertension with a patent umbilical vein), No mass, No rebound or guarding, No tender Musculoskeletal: nl extremities to inspection Extremities: normal pulses Skin: nl turgor, No rash or lesions Results Result Diagram: 11/19/1661911/19/16 0620 Results 24 hrs Laboratory Tests Test 11/19/16 06:20 Alanine Aminotransferase (ALT/SGPT) 40 Albumin 2.3 L Albumin/Globulin Ratio 0.76 Alkaline Phosphatase 125 H Anion Gap 12 Aspartate Amino Transf (AST/SGOT) 52 H Basophils # 0.0 Basophils % 0.6 Blood Urea Nitrogen 9 Calcium Level 6.9 L Carbon Dioxide Level 26 Chloride Level 107 Creatinine 0.65 Direct Bilirubin 0.00 Eosinophils # 0.3 Eosinophils % 7.4 H Globulin 3.00 Glucose Level 108 Hematocrit 25.5 L Hemoglobin 8.3 L Hemoglobin A1c 5.6 Indirect Bilirubin 0.4 Lymphocytes # 1.1 Lymphocytes % 31.6 Magnesium Level 1.8 Mean Corpuscular Hemoglobin 29.4 Mean Corpuscular Hemoglobin Concent 32.5 Mean Corpuscular Volume 90.4 Mean Platelet Volume 10.1 Monocytes # 0.5 Monocytes % 14.7 H Neutrophils # 1.6 Neutrophils % 45.7 Nucleated Red Blood Cells # 0.0 Nucleated Red Blood Cells % 0.0 Phosphorus Level 2.8 Platelet Count 122 L Potassium Level 3.8 Red Blood Count 2.82 L Red Cell Distribution Width 14.5 Sodium Level 141 Thyroid Stimulating Hormone (TSH) 4.140 Total Bilirubin 0.4 Total Protein 5.3 L White Blood Count 3.4 L Medications Medications Current Medications Ondansetron HCl 4 mg 4 mg Q6H PRN IV NAUSEA AND/OR VOMITING; Start 11/15/16 at 18:30 Piperacillin Sod/ Tazobactam Sod (Zosyn 3.375gm/ 100 ml (Pmx)) 100 ml @ 200 mls /hr Q8 IVPB Last administered on 11/19/16 06:12; Admin Dose 200 MLS/HR; Start 11/16/16 at 06:00 Acetaminophen 325 mg 325 mg Q6H PRN TN MILD PAIN LEVEL 1-3; Start 11/15/16 at 18:30 Potassium Chloride/Dextrose/ Sod Cl (D5-1/2ns + KCl 20 Meq) 1,000 ml @ 50 mls/ hr Q20H IV Last administered on 11/18/16 09:23; Admin Dose 75 MLS/HR; Start at 18:30 Pantoprazole (Protonix Tab) 40 mg BID@06,18 PO Last administered on 11/19/16 06:12; Admin Dose 40 MG; Start 11/19/16 at 06:00 Sucralfate (Carafate) 1 gm TID PO Last administered on 11/19/16 09:46; Admin Dose 1 GM; Start 11/18/16 at 21:00 VINCENT MANUEL MD Nov 19, 2016 11:23
--- NOTE | 2016-11-19 17:25 | PDOCDIS ---
Discharge Instructions DIAGNOSIS Discharge Diagnosis: anemia/ ulcer CONDITION Patient Condition: Stable HOME CARE INSTRUCTIONS: Special Diet: 2 GM NA ACTIVITY: Activity Restrictions: Slowly Increase Activity Do not Drive FOLLOW UP/APPOINTMENTS Appointments Appt Dr Handy -1wk Appt PCP 1wVIC [place] MD Nov 19, 2016 17:25
[2016-11-19] MEDS ORDERED: SUCR1TAB27 PO (17:26)
[2016-11-19] MEDS ORDERED: PANT40TA4 PO (17:26)
--- NOTE | 2016-11-20 06:46 | DS ---
DATE OF ADMISSION: 11/15/2016 DATE OF DISCHARGE: 11/19/2016 PRIMARY CARE PHYSICIAN: Unknown. TEST DEVELOPER: Dr. Handy. DIAGNOSES ON ADMISSION: Symptomatic anemia and gastrointestinal bleed. DIAGNOSES ON DISCHARGE: 1. Symptomatic anemia and gastrointestinal bleed. 2. Past alcoholism. 3. Probable alcoholic cirrhosis. 4. Chronic liver disease sequelae with ascites, portal hypertension. 5. Esophageal varices. 6. Leukopenia. 7. Symptomatic anemia. HOSPITAL COURSE: This is a 46-year-old gentleman with past alcoholism admitted with abdominal pain, severe anemia, and ascites. Underwent paracentesis and no evidence of SBP clinically. The patient underwent EGD and colonoscopy under the care of Dr. Handy. Please see operative report for comple te details. No active bleed. Appears to have esophageal varices and large internal hemorrhoids. T here is a duodenal ulcer and gastric ulcer. No active bleed. The patient is stable and fit for dis charge. We added PPI and Carafate. He needs to follow up with GI. Potentially needs a repeat EGD in 8 weeks to assess healing. May need hepatology referral down the line. DISCHARGE PLAN: 1. Home. Follow up with primary in [address] Handy in 1 week. DIET: Regular. ACTIVITY: As tolerated. No driving if dizzy. ALLERGIES: NONE. CODE STATUS: Full. CONDITION: Stable. REASON FOR ADMISSION: Severe anemia. BARRIERS TO DISCHARGE: None. PENDING TESTS: Pathology [id number]. MEDICATIONS: 1. Protonix 40 b.i.d. 2. Carafate 1 gram 3 times daily. Dictated By: VIC VILLALOBOS/NTS Conf#: [id number] DID#: [id number] CC: VINCENT HANDY;*EndCC*
--- NOTE | 2016-11-20 06:57 | GILP ---
DATE OF PROCEDURE: 11/18/2016 PROCEDURE: Esophagogastroduodenoscopy with biopsies. BRIEF HISTORY AND INDICATIONS: The patient is being evaluated for significant anemia. PREMEDICATION: Monitored anesthesia care by anesthesiologist. SURGEON: Vincent Handy MD. INSTRUMENT USED: TECHNIQUE: After informed consent, with the patient/relatives understanding the procedure, its jose cations, potential risks and complications, including but not limited to: allergic reaction, bleedin g, perforation or infection, and after all pertinent questions were answered to the patient's satisf action, the patient/relatives signed witnessed informed consent. Following this, premedication was administered slowly IV push under careful cardiovascular and respi ratory monitoring with pulse oximetry, automatic blood pressure and clinical research monitor. Once the sedative effect was achieved the patient was place in the left lateral decubitus, the panen doscope was introduced and advanced under visual control. Careful examination of the upper gastrointestinal tract, both on insertion as well as withdrawal of the instrument disclosed the following findings: ESOPHAGUS: The distal esophagus shows an 8 mm clean based esophageal ulcer with no stigmata. There is evidence of small grade I/IV esophageal varices in the distal esophagus. STOMACH: Upon entrance to the stomach, air was insufflated, the gastric grimes distended normal. Th ere are multiple antral gastric ulcerations with no stigmata ranging in size from 3 to 5 mm. Biopsies were obtained to rule out H. pylori infection. PYLORUS: Patent and within normal limits. DUODENUM: The duodenal bulb is remarkable for a large 1.5 cm duodenal ulcer with a clean base and n o stigmata of recent bleeding or potential for rebleeding. A second portion of the duodenum was un remarkable. IMPRESSION: 1. An 8 mm clean based esophageal ulcer. 2. Grade I/IV esophageal varices with no stigmata of recent bleeding. 3. Multiple small antral gastric ulcerations, benign endoscopic appearance, no stigmata. Rule out H. pylori infection, biopsies obtained. 4. Large 1.5 cm clean base duodenal ulcer with no stigmata. PLAN: The patient will be treated with PPI b.i.d. Pathology will be reviewed as soon as available outpatient. Diet will be stable. He could be managed as an outpatient. Followup endoscopy i n 8 weeks is indicated to assess healing of multiple areas of ulceration. Dictated By: VINCENT HANDY MS/NTS Conf#: [id number] DID#: [id number]
--- NOTE | 2016-11-20 07:00 | GILP ---
DATE OF PROCEDURE: 11/19/2016 PROCEDURE: Colonoscopy to cecum. BRIEF HISTORY AND INDICATIONS: The patient is being evaluated for severe unexplained anemia. PREMEDICATION: Monitored anesthesia care by anesthesiologist. SURGEON: Carloz Handy MD. INSTRUMENT USED: Olympus colonoscope. PREPARATION: Adequate. TECHNIQUE: After informed consent, with the patient/relatives understanding the procedure, its indic ations potential risks and complications, including but not limited to: allergic reaction, bleeding, perforation, infection, missed lesions and after all pertinent questions were answered to the patie nt's satisfaction, the patient/relatives signed the witnessed informed consent. Following this, premedication was administered slowly IV push by under careful cardiovascular and re spiratory monitoring with pulse oximetry, automatic blood pressure and monitoring specialist. Once the sedativ e effect was achieved, the patient was placed in the left lateral decubitus position, digital rectal examination was performed. The colonoscope was then introduced and advanced under visual control th roughout all segments of the colon including: the rectum, sigmoid, descending colon, splenic flexure , transverse colon, hepatic flexure, ascending colon and finally reaching the cecum which was clearl y identified by transillumination, finger indentation and the ileocecal valve. Careful examination o f the mucosa of the lower gastrointestinal tract both on insertion as well as withdrawal of the inst rument disclosed the following findings: Rectal Examination: No evidence of perirectal disease, no masses. Colonic Mucosa: The colonic mucosa is unremarkable throughout. The ileocecal valve was clearly miguel ntified and appears unremarkable. The instrument was withdrawn, reexamining the mucosa in detail. No additional abnormalities were no abel with the exception of large internal hemorrhoids. The instrument was then withdrawn. The patient tolerated the procedure well and was transferred out of the Endoscopy Suite awake and in good condition to continue recovery under observation. IMPRESSION: 1. Normal colonic mucosa to cecum. 2. Large internal hemorrhoids. PLAN: The patient will be continued on present regimen. High fiber diet is recommended. Screening colonoscopy in 10 years is recommended. If hematochezia should occur, hemorrhoidal treatment would be indicated. Dictated By: CARLOZ HANDY MS/CHIDI Conf#: [id number] DID#: [id number]
== END 2016-11-19 21:00 | disposition home or self-care (01) | DRG 809 ==
LOC: E/R 12:44 → TEL 17:03
PROVIDERS: ADMIT Internal Medicine; ATTEND Internal Medicine
PROC: 30233N1 Transfusion of Nonautologous Red Blood Cells into Peripheral Vein, Percutaneous Approach (ICD-10-PCS; 2016-11-15)
PROC: 0W9G3ZX Drainage of Peritoneal Cavity, Percutaneous Approach, Diagnostic (ICD-10-PCS; 2016-11-16)
PROC: 0DB68ZX Excision of Stomach, Via Natural or Artificial Opening Endoscopic, Diagnostic (ICD-10-PCS; 2016-11-18)
PROC: 0DJD8ZZ Inspection of Lower Intestinal Tract, Via Natural or Artificial Opening Endoscopic (ICD-10-PCS; principal; 2016-11-18 19:00)
DX: D61.818 Other pancytopenia (principal); K22.10 Ulcer of esophagus without bleeding; I85.10 Secondary esophageal varices without bleeding; K26.9 Duodenal ulcer, unspecified as acute or chronic, without hemorrhage or perforation; K76.6 Portal hypertension; K25.9 Gastric ulcer, unspecified as acute or chronic, without hemorrhage or perforation; F10.21 Alcohol dependence, in remission; D50.0 Iron deficiency anemia secondary to blood loss (chronic); K92.2 Gastrointestinal hemorrhage, unspecified; K74.60 Unspecified cirrhosis of liver; K64.8 Other hemorrhoids; K70.31 Alcoholic cirrhosis of liver with ascites
CPT/HCPCS: 36430; 71010; 74177; 80048; 80053; 80306; 81003; 82105; 82150; 82378; 83036; 83690; 83735; 84100; 84443; 84484; 85025; 85610; 85730; 86301; 86704; 86709; 86803; 86850; 86900; 86901; 86920; 87040; 87086; 87340; 88104; 88305; 88312; 88313; 90686; 93005; 96374; 96375; C9113; J2270; J2405; J2543; J3475; J3480; J7030; J7050; P9016; Q9967